=== PATIENT | female | born 2005 | race Caucasian/White ===

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

== ENCOUNTER → 2023-07-10 | Outpatient (CLI) | payer OTHER ==
--- NOTE | 2023-07-10 10:39 | CT ---
EXAMINATION: CT SCAN OF THE PELVIS WITH INTRAVENOUS CONTRAST DATE OF EXAM: 07/10/2023 10:30 AM HISTORY: R10.9 UNSPECIFIED ABDOMINAL PAIN COMPARISON: None. TECHNIQUE: CT examination of the pelvis was performed following the intravenous administration of iod inated contrast. CT dose lowering techniques were used, to include: automated exposure control, adjus tment for patient size, and/or use of iterative reconstruction. FINDINGS: PELVIS: GI Tract: Normal. (Note: Small and Large bowel are only partially imaged as portions located in th e abdomen are not included with Pelvis CT) Mesentery/Peritoneum: Normal. Vasculature: Normal. Lymph Nodes: Normal. Abdominal Wall: Normal. Bladder: Normal. Reproductive: Small vaginal cyst on the left measuring 1.7 cm in diameter. Musculoskeletal: Normal. IMPRESSION: 1. No acute findings seen within the pelvis. Thank you for the referral of this patient. This exam was interpreted by an [employer] certified radiologist with subspecialty fellowship training. If there are any questions regarding this exam please feel free to contact a radiologist directly at [phone]. Slot
== END | disposition home or self-care (01) ==
LOC: RADCTMAIN 08:57
PROVIDERS: ATTEND Family Medicine
DX: R10.9 Unspecified abdominal pain (principal); R10.2 Pelvic and perineal pain; N83.01 Follicular cyst of right ovary
CPT/HCPCS: 72193; Q9967